=== PATIENT | female | born 1990 | race Asian ===

== ENCOUNTER 2025-03-06 10:03 | Inpatient (IN) | payer BC, SELFPAY ==
--- NOTE | 2025-02-20 14:55 | PCM.HP.BLA ---
History and Physical Date of Admission: 03/06/25 Expand All Collapse All Pre-Op History and Physical HPI: The patient is a 34 year old female presenting for pre-operative visit. She is scheduled for , for previous cs, GDMA1, Obesity on . Procedure discussed along with risks, benefits and complications. Other alternatives discussed for management. Consent form signed? Yes. Past Medical History PAST MEDICAL HISTORY Diagnosis Date ? PCOS (polycystic ovarian syndrome) PAST SURGICAL HISTORY PAST SURGICAL HISTORY Procedure Laterality Date ? SNGL 2021 CURRENT MEDICATIONS Current Outpatient Medications Medication Sig Dispense Refill ? ferrous sulfate (IRON PO) Take by mouth. ? blood sugar diagnostic test strip Use as directed to check glucose levels up to seven times daily. 200 strip 8 ? Lancets Use as directed to check glucose levels up to seven times daily. 200 each 8 ? alcohol swabs (ALCOHOL PREP PADS) Use as directed to check glucose levels up to seven times daily. 200 each 8 ? PNV no.103/folic/om3s/fish oil ( WITH DHA-FOLIC ACID PO) ? aspirin, enteric coated (ECOTRIN LOW STRENGTH) 81 mg EC tablet Take 1 tablet by mouth once daily. 90 tablet 3 No current facility-administered medications for this visit. ALLERGIES: Patient has no known allergies. PERSONAL HISTORY: [Social History] [Social History] Tobacco Use ? Smoking status: Never ? Smokeless tobacco: Never Vaping Use ? Vaping status: Never Used Substance Use Topics ? Alcohol use: Not Currently ? Drug use: Not Currently FAMILY HISTORY: Family History No family history on file. REVIEW OF SYMPTOMS: negative except as noted above PHYSICAL EXAMINATION: VITALS: Last menstrual period 06/03/2024. GENERAL: The patient is well nourished, well hydrated in no acute distress. , The patient is oriented to time, place, and person. NECK: full range of motion ABD: gravid, non tender IMPRESSION: @ 37.3 weeks with GMDA1, obesity, h/o section PLAN: repeat cs at 39 weeks Pt has been counseled on risks/benefits and alternatives of surgery including but not limited to anesthesia, bleeding, infection, injury to pelvic structures including bowel, bladder, ureters and vessels. Pt wishes to proceed with surgery at this time. Pre and post op instructions reviewed I have reviewed and updated past medical and surgical history, medications and allergies Penelope Butts MD Routine Office Visit on 02/20/2025 Note shared with patient
[2025-03-06] VITALS (20 sets, daily range): BP systolic 92–123; BP diastolic 48–96; PULSE 60–89; RESP 12–18; TEMP 36.2–36.6; O2SAT 94–100; BMI 46.6
[2025-03-06] MEDS: Lactated Ringers 1,000 ML 999 ML IV (09:45)
[2025-03-06 10:19] LABS: Hematocrit 37.5 % (37-47); Hemoglobin 13.1 g/dL (12.0-15.0); Immature Granulocytes Count 0.040 X10^3/uL (0.0-0.0); Mean Corp Hgb Conc 34.9 g/dL (32-36); Mean Corpuscular Volume 91.0 fL (81-99); Mean Platelet Vol. 10.7 fl (6.2-12.0); NRBC Flagged by Analyzer 0 % (0-5); Platelet Count 153 K/mm3 (150-450); RBC Distribution Width CV 13.5 % (11.6-14.6); RBC Distribution Width SD 44.6 fl (35.1-43.9); Red Blood Count 4.12 M/mm3 (4.2-5.4); White Blood Count 8.9 K/mm3 (4.4-11.0)
[2025-03-06] MEDS: Lactated Ringers 1,000 ML 150 ML IV (10:37)
[2025-03-06 11:06] LABS: Syphilis Antibodies Nonreactive (Nonreactive)
[2025-03-06] MEDS: morphine PF (epidural) 5 MG/10 ML Vial EPIDURAL (12:09)
[2025-03-06] MEDS: Cefazolin 1 GM/5 ML Vial 2 GM IV (12:13)
[2025-03-06] MEDS: TRANEXAMIC ACID 1,000 MG in 0.9% Normal Saline (100mL Bag) 100 ML 440 MG IV (12:15)
[2025-03-06] MEDS: TRANEXAMIC ACID 1,000 MG/10 ML ML 1000 MG IV (12:17)
--- NOTE | 2025-03-06 12:55 | EX.PCM.OBRPT ---
Maternal Data Information Gestational age: 39 Operative Report (OB) Procedure Details Date of Procedure: 03/06/25 Procedure Start Time: 12:21 Procedure Stop Time: 13:03 Time of Delivery: 12:25 Pre-Operative Diagnosis: Repeat Elective and Other Other Pre-Operative diagnosis: GMDA1, Obesity in , Previous cs, 39 weeks Post-Operative Diagnosis: Same as Pre-operative diagnosis Classification: Scheduled Type of Anesthesia: Spinal Antibiotic Given: Ancef 2 grams IV x1 Drain: Youssef to straight drain Estimated Blood Loss: 600 Fluids Replaced: 800 Findings Description of surgery: After informed consent was obtained the patient was taken the operating room she was given spinal anesthesia. She was then placed in the supine position. She was prepped and draped in the normal sterile fashion. Anesthesia was found to be adequate. At this time a Pfannenstiel skin incision was made with a knife was carried down to the underlying layer of the fascia. The fascial incision was then extended laterally using kiran scissor. Attention was then turned to the superior aspect of the fascial edge was grasped with 2 straight Yair clamps tented up and the rectus muscle dissected off blunty. Rectus muscles were then in the midline bluntly and peritoneum was entered bluntly. Gentle opposing traction was placed. At this time the vesicouterine peritoneum was identified. Scalpel was used to make a uterine incision in a low transverse fashion. The uterus was then entered bluntly gentle opposing traction was placed to extend this incision. Membranes were ruptured clear. Infant's head was brought to the uterine incision was delivered atraumatically. Nuchal x 1 loose appreciated. Infant was vigorous at delivery and delayed cord clamping performed. Cord was clamped and cut infant was handed to the waiting nursery team. The Placenta was removed from the uterus. The uterus was then removed from the abdominal cavity. The uterus was cleared of all clots and debris using a lap. At this time the uterine incision was reapproximated using #1 Vicryl in a running locked fashion. Hemostasis was appreciated. Posterior cul-de-sac was then cleared of all clots and debris. Uterus was placed back in the abdominal cavity. Gutters were cleared of all clots and debris. Uterine incision was reevaluated and noted to be of excellent hemostasis. At this time the peritoneum was grasped with Kellys reapproximated using #2 Vicryl suture in a running fashion. Fascia was then reapproximated using #1 PDS in a running fashion. Subcu layer was irrigated with NS, reapproximated with #2 0 plain gut suture in an interrupted fashion. Subcu layer was closed using 4-0 Monocryl/Viryl in a subcu fashion. Dry sterile dressing was applied. Instrument lap needle count correct ?2. Anticipated normal postoperative course. Surgical findings: Normal tubes bilaterally Presentation: Vertex Amniotic Membrane Rupture Type: Artificial Amniotic Fluid Description: Clear Placental Delivery Description: Expressed Placenta Disposition: [facility] Specimen collected: No Cord Vessel Description: 3 Vessels Cord Entanglement: Around neck x 1, loose Nuchal Cord Compression: Without compression Infant A gender: Female (1 minute): 8 (5 minute): 9 Delayed Cord Clamping: Yes Power Distribution Engineer diamond cleaner: Yes Quality Audit Representative: Quintin Arboleda Tasks completed by first coat sander: Opening & closing and Retracting Additional study assistant?: Yes Additional Well Reactivator Operator #2: Facundo Burgos MS3 Tasks completed by study assistant #2: Retracting Additional study assistant?: No Complications Complications: No
[2025-03-06] MEDS: Oxytocin 15 Units/NS 250ml 15 UNITS/250 ML IV.SOLN 83 UNITS IV (13:20)
[2025-03-06] MEDS: Ketorolac 30 MG/ML Syringe IV ×2 (13:50→20:18)
[2025-03-06] MEDS: Lactated Ringers 1,000 ML 100 ML IV ×2 (16:26→23:10)
[2025-03-06] MEDS: 0.9% Saline Lock 10 ML Syringe IV (16:26)
[2025-03-06] MEDS: LACTATED RINGERS 500 ML 999 ML IV (20:22)
--- NOTE | 2025-03-06 22:10 | CPS ---
Pt on AutoPAP 5-15 cmH2O
[2025-03-07] VITALS (10 sets, daily range): BP systolic 120–128; BP diastolic 62–69; PULSE 64–84; RESP 16–18; TEMP 36.4–36.7; O2SAT 96–98
[2025-03-07] MEDS: Ketorolac 30 MG/ML Syringe IV ×2 (01:43→08:13)
[2025-03-07] MEDS: 0.9% Saline Lock 10 ML Syringe IV (05:24)
[2025-03-07 05:52] LABS: Hematocrit 31.4 % (37-47); Hemoglobin 10.5 g/dL (12.0-15.0); Mean Corp Hgb Conc 33.4 g/dL (32-36); Mean Corpuscular Volume 93.5 fL (81-99); Mean Platelet Vol. 10.8 fl (6.2-12.0); Platelet Count 141 K/mm3 (150-450); RBC Distribution Width CV 13.4 % (11.6-14.6); RBC Distribution Width SD 45.9 fl (35.1-43.9); Red Blood Count 3.36 M/mm3 (4.2-5.4); White Blood Count 10.0 K/mm3 (4.4-11.0)
[2025-03-07] MEDS: Senna/Docusate Sodium 1 Tablet PO (08:13)
--- NOTE | 2025-03-07 09:02 | PCM.DC.SUM ---
Providers Date of Admission: 03/06/25 Primary Care Physician: No Primary Care Phys Reason For Visit: C SECTION Medications at Discharge Home Medications ferrous sulfate 325 mg (65 mg iron) tablet (iron) 325 mg PO DAILY anemia 03/06/25 vit no.95-ferrous fumarate 28 mg-folic acid 800 mcg tablet () 1 tab PO DAILY 03/06/25 Hospital Course Operations section Procedures None Summary of Care Provided Minutes Spent on Discharge: 15 Hospital Course: Patient had section. Hospital course was uneventful. Physical Exam Narrative Dressing is dry and intact Const alert and no apparent distress General Appearance: cooperative and comfortable Exam Limitations: no limitations HEENT normocephalic Eyes General Eye: normal appearance of both eyes Neck full ROM General: normal visual inspection Chest Chest: symmetrical chest wall rise Resp normal respiratory effort and normal air movement Effort and Inspection: symmetric chest movement Auscultation: clear to auscultation bilaterally Cardio regular rate and regular rhythm GI normal to inspection, nondistended, normoactive bowel sounds Back/Spine normal ROM Extremity full ROM and no calf tenderness General Extremity: normal exam except as noted Skin no rashes or lesions noted Wound Narrative: Dressing is dry and intact. Neuro CN's II-XII intact bilaterally Psych mental status grossly normal Weight / BMI Weight Weight: 231 lb Body Mass Index (BMI) 46.6 PRE- weight 195 lb PRE- Body Mass Index 39.3 (BMI) ABG / Lab / Microbiology Data 03/07/25 05:30 Laboratory: Laboratory Results - last 24 hr 03/07/25 05:30: WBC 10.0, RBC 3.36 L, Hgb 10.5 L, Hct 31.4 L, MCV 93.5, MCH 31.3, MCHC 33.4, RDW Std Deviation 45.9 H, RDW Coeff of Sheba 13.4, Plt Count 141 L, MPV 10.8 03/07/25 05:35: POC Glucose 85 D/C Instructions Discharge Activity: May Drive (2 weeks) and May Shower May resume sexual activity in: 6-8 weeks Weight Bearing Status: Weight bearing as tolerated Lifting Restricted to (Lbs): 25 Call your doctor if your incision/area has: Continuous Slow Oozing, Sudden Increased Bleeding, Increased Pain/ Swelling, Increased Redness, Foul Smelling Discharge and Swelling at the incision site Call your doctor if you observe: Fever of 101 or Higher, Numbness or Tingling, Using more than 1 pad per hour, Shortness of breath, Dizziness, Swelling in the ankles, Chest pain, Calf discomfort and Uncontrolled pain Suture Line Care: Avoid Pulling/Pushing Remove Dressing in: 5 days (Remove yourself or call office and schedule appointment for dressing removal.) DC O2, CPAP, BIPAP Needs Home O2 Discharge instructions: No When: 5 days for dressing removal or 2 weeks for post appointment. Meaningful Use Info Meaningful Use Meaningful Use Diagnoses (Choose all that apply): None applicable Discharge Plan Admission Admit Date/Time: 03/06/25 10:03 Primary Reason for Your Visit: labor and delivery Attending Provider: Penelope Robbins Primary Care Provider: Trish Physician,Loli Primary Discharge Orders/Prescriptions Prescriptions: Continued PNV no.95-ferrous fumarate-FA [] 28 mg iron- 800 mcg tablet 1 tab PO DAILY ferrous sulfate [iron] 325 mg (65 mg iron) tablet 325 mg PO DAILY Discontinued aspirin 81 mg capsule 81 mg PO DAILY Referrals / Follow Up: Care Physician,No Primary [Primary Care Provider, Medical] Disposition Disposition (needs filled in before D/C Order can be placed): Home, Self Care
== END 2025-03-07 18:59 | disposition home or self-care (01) | DRG 788 ==
PROVIDERS: Admitting Provider Obstetrics & Gynecology; Referring Provider Obstetrics & Gynecology; Visit Provider Obstetrics & Gynecology
PROC: 10D00Z1 Extraction of Products of Conception, Low, Open Approach (ICD-10-PCS; CPT 59514; principal; 2025-03-06 11:45)
DX: O34.219 Maternal care for unspecified type scar from previous cesarean delivery (principal); E66.9 Obesity, unspecified; O24.420 Gestational diabetes mellitus in childbirth, diet controlled; O99.214 Obesity complicating childbirth; O69.81X0 Labor and delivery complicated by cord around neck, without compression, not applicable or unspecified; Z37.0 Single live birth; Z3A.39 39 weeks gestation of pregnancy
CPT/HCPCS: 59050; 82962; 85025; 85027; 86780; 86850; 86900; 86901; 94660; 99221; A4216; G0378; J2405